=== PATIENT | male | born 1950 | race African-American/Black ===

== ENCOUNTER 2016-12-30 09:30 | Emergency (ER) | payer MEDICARE, OTHER ==
[~2016-12-30] VITALS: Ht 182.9 cm; Wt 113.0 kg
[2016-12-30 09:45] VITALS: BP 179/90
== END 2016-12-30 11:26 | disposition home or self-care (01) ==
LOC: ER 09:31
DX: H92.01 Otalgia, right ear (principal); H93.11 Tinnitus, right ear; I10 Essential (primary) hypertension
CPT/HCPCS: 99281

== ENCOUNTER 2018-08-05 11:36 | Emergency (ER) | payer MEDICARE ==
[~2018-08-05] VITALS: Ht 162.6 cm; Wt 100.0 kg
[2018-08-05] MEDS ORDERED: MECLIZINE 25MG TABLET PO ONE ×2 (16:00→21:15)
[2018-08-05 16:49] LABS: BASOPHILS % 0.6 % (0.0-2.0); HEMOGLOBIN. 14.2 g/dL (14.0-18.0); LYMPHOCYTES % 35.6 % (20.0-50.0); MEAN CORPUSCULAR HEMOGLOBIN 30.3 pg (28.0-32.0); MEAN CORPUSCULAR VOLUME 91.8 fL (80.0-94.0); MEAN PLATELET VOLUME 9.9 fl (7.4-10.4); MONOCYTES % 6.9 % (2.0-8.0); NEUTROPHILS % 47.9 % (40.0-76.0); PLATELET 200 x1000/uL (130-400); RED BLOOD CELL COUNT 4.69 mill/uL (4.7-6.1); RED CELL DISTRIBUTION WIDTH 14.4 % (11.6-14.6)
[2018-08-05 16:50] LABS: CHLORIDE 99 mEq/L (98-107); PROTHROMBIN TIME 10.3 sec (9.1-11.1)
[2018-08-05 18:24] LABS: CLARITY URINE CLEAR (CLEAR); COLOR URINE YELLOW (YELLOW); KETONES URINE NEGATIVE (NEGATIVE); LEUKOCYTE ESTERASE URINE NEGATIVE (NEGATIVE); NITRITE URINE NEGATIVE (NEGATIVE); OCCULT BLOOD URINE NEGATIVE (NEGATIVE); PROTEIN URINE NEGATIVE (NEGATIVE); SPECIFIC GRAVITY URINE 1.016 (1.005-1.030); UROBILINOGEN URINE 0.2 E.U./dL (0.2-1.0)
[2018-08-05 21:13] VITALS: BP 140/77
== END 2018-08-05 21:20 | disposition home or self-care (01) ==
LOC: ER 13:22
DX: R42 Dizziness and giddiness (principal); R00.2 Palpitations
CPT/HCPCS: 36415; 70551; 71045; 84484; 93005; 99284; J8597

== ENCOUNTER 2018-11-28 14:09 | Emergency (ER) | payer MEDICARE, MEDICAID, OTHER ==
[~2018-11-28] VITALS: Ht 167.6 cm; Wt 127.0 kg
[2018-11-28] MEDS ORDERED: ATOR-2 PO (14:22)
[2018-11-28] MEDS ORDERED: AMLO10TA80 PO (14:22)
[2018-11-28] MEDS ORDERED: HYDR25TA PO (14:22)
[2018-11-28] MEDS ORDERED: METO1TAB40 PO (14:22)
[2018-11-28 23:32] LABS: CHLORIDE 102 mEq/L (98-107)
[2018-11-28 23:42] LABS: BASOPHILS % 0.4 % (0.0-2.0); HEMATOCRIT. 41.7 % (42.0-52.0); HEMOGLOBIN. 13.7 g/dL (14.0-18.0); LYMPHOCYTES % 21.5 % (20.0-50.0); MEAN CORPUSCULAR HEMOGLOBIN 30.1 pg (28.0-32.0); MEAN CORPUSCULAR VOLUME 91.7 fL (80.0-94.0); MEAN PLATELET VOLUME 9.9 fl (7.4-10.4); MONOCYTES % 11.5 % (2.0-8.0); NEUTROPHILS % 61.6 % (40.0-76.0); PLATELET 170 x1000/uL (130-400); RED BLOOD CELL COUNT 4.55 mill/uL (4.7-6.1); RED CELL DISTRIBUTION WIDTH 14.5 % (11.6-14.6)
[2018-11-29 04:15] VITALS: BP 124/64
== END 2018-11-29 04:26 | disposition home or self-care (01) ==
LOC: ER 14:09
DX: J40 Bronchitis, not specified as acute or chronic (principal)
CPT/HCPCS: 36415; 71045; 83880; 84484; 93005; 99284